=== PATIENT | female | born 1960 | race Caucasian/White ===

== ENCOUNTER 2024-06-27 22:22 | Emergency (ER) | payer OTHER, SELFPAY ==
[2024-06-27 22:36] VITALS: BP 166/77; PULSE 72; RESP 17; TEMP 36.6; O2SAT 97; BMI 49.2
--- NOTE | 2024-06-27 23:07 | ED.FALL ---
HPI - Fall General Chief Complaint: Fall Stated Complaint: Fall, arm injury, no blood thinners Time Seen by Provider: 06/27/24 22:43 Source: patient Mode of arrival: Ambulatory History of Present Illness HPI Narrative: 64-year-old female history of left rotator cuff surgery 2 years ago presents with left shoulder pain after after mechanical fall as she walks with a walker and had groceries in the other arm and tripped over and landed on the grassy area prior to her arrival here in the ER. She is unable to move her left shoulder at this time in any direction. She denies loss of consciousness, headache, dizziness, chest pain, neck pain, back pain, numbness, tingling down, the arms or legs. She is not taking anything prior to arrival. Other than what is stated 14 point review of system is negative Related Data Home Medications Medication Instructions Recorded Confirmed diazepam 5 mg tablet 5 mg PO 3XD PRN Anxiety 06/27/24 06/27/24 hydrochlorothiazide 12.5 mg capsule 12.5 mg PO DAILY 06/27/24 06/27/24 ibuprofen 800 mg tablet 800 mg PO 3XD PRN Pain, Moderate 06/27/24 06/27/24 levothyroxine 125 mcg tablet 125 mcg PO DAILY 06/27/24 06/27/24 oxycodone 15 mg PO 5XD PRN Pain, Severe 06/27/24 06/27/24 sennosides 8.6 mg tablet (Senna 8.6 mg PO DAILY PRN Constipation 06/27/24 06/27/24 Lax) Allergies Allergy/AdvReac Type Severity Reaction Status Date / Time No Known Drug Allergies Allergy Verified 06/27/24 22:30 Review of Systems Review of Systems ROS Unobtainable: All systems reviewed & are unremarkable except as noted in HPI and below Patient History Social History Smoking Status: Former smoker Smoking Status: Former smoker tobacco type: cigarettes Exam Narrative Exam Narrative: GENERAL: [84] year old patient appears stated age. Well-developed patient, in mild distress. HEAD: Atraumatic. Normocephalic. EYES: Pupils equal round and reactive. Extraocular motions intact. No scleral icterus. No injection or drainage. NECK: Trachea midline. Non tender CARDIOVASCULAR: Regular rate and rhythm without murmurs, gallops, or rubs. RESPIRATORY: Clear to auscultation. Breath sounds equal bilaterally. No wheezes, rales, or rhonchi. GASTROINTESTINAL: Abdomen soft, non-tender, nondistended. EXTREMITIES: L shoulder TTP with dec ROM in all direction. L elbow/hand/wrist FROM motor/sensory intact +2 rad pulse cap refill <2secs BACK: Nontender without deformity or crepitance. No flank tenderness. NEURO: AOx3. SKIN: No rash or erythema of visible areas Initial Vital Signs Initial Vital Signs: Vital Signs Temperature 97.9 F 06/27/24 22:36 Pulse Rate 72 06/27/24 22:36 Respiratory Rate 17 06/27/24 22:36 Blood Pressure 166/77 H 06/27/24 22:36 Pulse Oximetry 97 06/27/24 22:36 Oxygen Delivery Method Room Air 06/27/24 22:36 Course Orders Ordered: ED Orders 06/27/24 23:06 CXR [XR chest 2V] Stat XR shoulder LT 2+ views Stat Discontinued Medications Hydrocodone Bitart/Acetaminophen (Hydrocodone/Acet 5/325 Tablet) 1 tab PO NOW ONE Stop: 06/27/24 23:46 Last Admin: 06/27/24 23:50 Dose: 1 tab Documented By: Ibuprofen (Ibuprofen 400 Mg Tablet) 800 mg PO NOW ONE Stop: 06/27/24 23:46 Last Admin: 06/27/24 23:50 Dose: 800 mg Documented By: Ondansetron HCl (Ondansetron 4 Mg Odt) 4 mg SL NOW ONE Stop: 06/27/24 23:39 Last Admin: 06/27/24 23:49 Dose: 4 mg Documented By: Vital Signs Vital signs: Vital Signs - 8 hr 06/27/24 22:36 Temperature 97.9 F Pulse Rate 72 Respiratory Rate 17 Blood Pressure 166/77 H Pulse Oximetry 97 Oxygen Delivery Method Room Air MDM - Fall Imaging Data Extremity x-ray #1: Radiologist's Impression: [address] [address] XRay Report Signed Patient: Carissa Delaney MR#: [id number] : 1960 Acct:[id number] Age/Sex: 64 / F Date of Service: 06/27/24 Loc: ED Accession Number: [id number] Procedure: XR shoulder LT 2+ views Ordering Provider: Matt Coates D.O. PROCEDURE: XR SHOULDER LT MIN 2V INDICATIONS: L shoulder pain TECHNIQUE: 3 views of the shoulder were acquired. COMPARISON: None. FINDINGS: Bones: Acute appearing impacted fracture involving proximal humeral shaft/surgical neck with slight shortening of left proximal humeral shaft. No other fracture or dislocation. Severe glenohumeral joint osteoarthritis. No suspicious bony lesions. Visualized ribs appear intact. Soft tissues: No suspicious soft tissue calcifications. IMPRESSION: Acute impacted left proximal humeral shaft/surgical neck fracture. Severe glenohumeral joint osteoarthritis. No other fracture or dislocation. Dictated by: Cory Leach M.D. on 06/27/2024 at 23:33 Approved by: Cory Leach M.D. on 06/27/2024 at 23:35 [place] [address] XRay Report Signed Patient: Carissa Delaney MR#: [id number] : 1960 Acct:[id number] Age/Sex: 64 / F Date of Service: 06/27/24 Loc: ED Accession Number: [id number] Procedure: XR chest 2V Ordering Provider: Matt Coates D.O. PROCEDURE: XR CHEST 2V INDICATIONS: L shoulder pain TECHNIQUE: 2 views of the chest were acquired. COMPARISON: None. FINDINGS: Surgical changes and devices: Surgical clips are seen in right upper quadrant abdomen. Lungs and pleura: Lungs are clear. No pleural effusions or pneumothorax. Mediastinum: Mediastinal contours are normal. Heart size is normal. Bones and chest wall: No suspicious bony abnormalities. Soft tissues appear unremarkable. IMPRESSION: No acute cardiopulmonary pathology. Dictated by: Cory Leach M.D. on 06/27/2024 at 23:32 Approved by: Cory Leach M.D. on 06/27/2024 at 23:33 MDM Narrative Medical decision making narrative: Vital signs, nurse triage note, medication list, previous ER visits and all imaging modalities all reviewed. Patient given ibuprofen and hydrocodone here. Patient placed in in a sling with acute impacted left proximal humeral shaft surgical neck fracture with severe glenohumeral joint arthritis. Case discussed with Dr. Boudreaux orthopedic surgeon on-call who has reviewed the films and agreed with plan for sling pain control and follow up as outpatient. Differential diagnosis includes fracture, dislocation, contusion, arthritis. Pt is from [place] will be heading back in the morning copy of xray on cd given to patient to take to [facility] for follow up. Discharge Plan Departure Patient Disposition: Home Clinical Impression: Humerus surgical neck fracture Qualifiers: Encounter type: initial encounter Fracture type: closed Fracture morphology: 2-part Fracture alignment: displaced Laterality: left Qualified Code(s): S42.222A - 2-part displaced fracture of surgical neck of left humerus, initial encounter for closed fracture Instructions: Humeral Shaft Fracture Activity Restrictions/Additional Instructions: Return with new or worsening symptoms. Follow up with orthopedic surgeon in [facility] on Saturday. Prescriptions: No Action sennosides [Senna Lax] 8.6 mg Tablet 8.6 mg PO DAILY PRN (Reason: Constipation) ibuprofen 800 mg tablet 800 mg PO 3XD PRN (Reason: Pain, Moderate) levothyroxine 125 mcg tablet 125 mcg PO DAILY hydrochlorothiazide 12.5 mg capsule 12.5 mg PO DAILY diazepam 5 mg tablet 5 mg PO 3XD PRN (Reason: Anxiety) oxycodone 15 mg 15 mg PO 5XD PRN (Reason: Pain, Severe) Patient Comments: Chronic pain management Referrals: Miscellaneous,Doctor, MD [Primary Care Provider] - Stand Alone Forms: Patient Portal/API/Survey
[2024-06-27] MEDS: ONDANSETRON 4 MG ODT SL (23:49)
[2024-06-27] MEDS: HYDROCODONE/ACET 5/325 TABLET 1 TAB PO (23:50)
[2024-06-27] MEDS: IBUPROFEN 400 MG TABLET 800 MG PO (23:50)
--- NOTE | 2024-06-28 00:18 | DI.RAD.S_ITS ---
PROCEDURE: XR HUMERUS LT 2V INDICATIONS: fracture TECHNIQUE: 2 views of the humerus were acquired. COMPARISON: [facility], CR, XR SHOULDER LT 2+ VIEWS, 06/27/2024, 23:08. FINDINGS: Bones: Again noted is impacted proximal humeral shaft/surgical neck fracture. Severe glenohumeral joint osteoarthritis. No mid to distal humeral fracture. No dislocation. No suspicious bony lesions. Soft tissues: No suspicious soft tissue calcifications. IMPRESSION: Impacted proximal humeral fracture unchanged from earlier study. Severe glenohumeral joint osteoarthritis. No mid to distal humeral fracture. Dictated by: Cory Leach M.D. on 06/28/2024 at 1:03 Approved by: Cory Leach M.D. on 06/28/2024 at 1:04
[2024-06-28] MEDS: HYDROCODONE/ACET 5/325 PREPACK 1 BOTTLE MISC (01:58)
[2024-06-28] MEDS: ONDANSETRON 4 MG ODT PREPACK 1 BOTTLE MISC (01:58)
[2024-06-28 02:03] VITALS: BP 144/84; PULSE 74; RESP 15; O2SAT 94
== END 2024-06-28 02:06 | disposition home or self-care (01) ==
PROVIDERS: Emergency Provider Family Medicine
DX: S42.222A 2-part displaced fracture of surgical neck of left humerus, initial encounter for closed fracture (principal); W01.0XXA Fall on same level from slipping, tripping and stumbling without subsequent striking against object, initial encounter
CPT/HCPCS: 71046; 73030; 73060; 99283